=== PATIENT | male | born 1960 | race Caucasian/White ===

== ENCOUNTER 2018-07-06 01:33 | Observation (INO) ==
[2018-07-06] MEDS ORDERED: NITROGLYCERIN 0.4 MG SL TAB (BOTTLE OF 3) SL ONE ×2 (01:38→01:45)
[2018-07-06] MEDS ORDERED: MORPHINE SULFATE 4 MG/1 ML IVP ONE (01:45)
[2018-07-06] MEDS ORDERED: Sodium Chloride 0.9% 1,000 ML PRIMARY IV ONE (01:45)
[2018-07-06] MEDS ORDERED: ONDANSETRON 4 MG/2 ML VIAL IVP ONE (01:45)
--- NOTE | 2018-07-06 01:48 | EKG ---
[address] [place] [address] Measurements Intervals [place] Rate: 55 P: 59 MA: 170 QRS: -10 QRSD: 118 T: 121 QT: 432 QTc: 422 Interpretive Statements SINUS BRADYCARDIA MODERATE INTRAVENTRICULAR CONDUCTION DELAY ST DEVIATION AND MODERATE T-WAVE ABNORMALITY, CONSIDER ANTEROLATERAL ISCHEMIA Compared to ECG 06/26/2018 08:42:44 No significant changes Electronically Signed On 07-06-18 18:05:25 MDT by Piotr Boucher [id number]
--- NOTE | 2018-07-06 01:49 | PDOC ---
Chest Pain HPI - General Chief Complaint: Chest Pain Stated Complaint: CHEST PAIN Date Seen by Provider: 07/06/18 Time Seen by Provider: 01:30 Source: Patient, Spouse Exam Limitations: POSITIVE: No limitations Treatment Prior to Arrival: REPORTS: Aspirin Nurse's Notes Reviewed & Considered: Yes - History of Present Illness Initial Comments: This is a well-developed, well-nourished, very pleasant, 58-year-old male, complaining of chest pain. Patient had chest pain that began approximately an hour ago that he describes as pressure that is nonradiating. He has associated shortness of breath. By the time he arrived in the emergency room his pain had improved. He's been having multiple episodes of chest pressure and shortness of breath that can occur at random times with and without activity. He states that the chest pressure and tightness that he gets in his chest with attempting to walk up with your to swim is significantly worse. He denies any headache, no sore throat, no nausea vomiting or diarrhea, no fever chills or sweats. Body Location Affected: REPORTS: Chest Timing: REPORTS: Abrupt Duration: 1 hour Severity: Moderate Context: REPORTS: Rest Quality: REPORTS: Pressure Radiation: REPORTS: None Associated Symptoms: REPORTS: Shortness of Breath Modifying Factors: improves with: None Reported Similar Symptoms Previously: Yes Recently seen/treated/hospitalized: Yes Any Prior Injuries Related to Current Complaint?: No - Patient Home Medications Home Medications: Home Medications Lysine 500 mg PO QD 06/21/11 Multivitamin [Vitamin A Day] 1 tab ORAL QD tab 06/21/11 Aspirin [Aspir 81] 81 mg ORAL QD #90 tab 06/18/14 tamsulosin 0.4 mg capsule 0.4 mg ORAL QD #90 cap 04/04/18 colchicine 0.6 mg tablet 1.2 mg PO DAILY tab 05/07/18 fenofibrate 54 mg tablet 54 mg PO QDAY #90 tab 05/07/18 ezetimibe 10 mg-simvastatin 40 mg tablet 1 tab PO QDAY #90 tab 05/12/18 allopurinol 300 mg tablet 150 mg PO QD #30 tab 06/03/18 lisinopril 10 mg tablet 10 mg PO QDAY 06/17/18 - Patient Allergies Allergies/Adverse Reactions: Allergies 3 Allergy/AdvReac Type Severity Reaction Status Date / Time No Known Drug Allergies Allergy NOT Verified 07/06/18 01:41 APPLICABLE Past Medical History - heen HEENT History: Denies History Cardiovascular History: Hypertension Genitourinary History: Other (please comment) Additional Genitourinary History: prostate CA Endocrine History: Denies History Musculoskeletal History: Denies History Neurological History: Denies History Blood Disorders: Denies History History of Sexually Transmitted Diseases: Yes (clamidia) Cancer History: Other (please comment) History of MDRO: No In the Past 12 Months, Have Used or Abuse Any Substance: None Significant Family History: No pertinent family hx ROS - Limitations ROS Limitations: No Limitations Constitution: REPORTS: Denies Symptoms Cardiovascular: REPORTS: Chest Pain Respiratory: REPORTS: Hurts To Breathe, Shortness Of Breath Neurological: REPORTS: Denies Neuro Symptoms Gastrointestinal: REPORTS: Denies GI Symptoms Endocrine: REPORTS: Denies Symptoms Musculoskeletal: REPORTS: Denies MS Symptoms Genitourinary: REPORTS: Hematuria Eyes: REPORTS: Denies Symptoms ENT: REPORTS: Denies Symptoms Skin: REPORTS: Denies Skin Symptoms Lympathic: REPORTS: Denies Lympathic Symptoms Immunologic: POSITIVE: Denies Symptoms Psychiatric: POSITIVE: Denies Psych Symptoms Chest Pain PE - General Appearance General Appearance: REPORTS: Alert, Cooperative, No Acute Distress, No Evidence of Trauma - HEENT HEENT: POSITIVE: Head Inspection Nml, Eyes Inspection Nml, Ears Inspection Nml, Nose Inspection Nml, Oral/Dental Inspect. Nml, Pharynx Inspect. Nml, PERRL, EOMI - Neck Neck: REPORTS: Normal Inspection - Respiratory Respiratory: REPORTS: No Respiratory Distress, Breath Sounds Normal, Chest Non- Tender - Cardiovascular Cardiovascular: REPORTS: Regular Rate and Rhythm, Heart Sounds Normal, Strong Pulses, No Murmur, No Gallop, No Friction Rub, No JVD Peripheral Pulses: Radial (R): 4+ - Abdomen Abdomen: Soft: (All Quadrants), Normal Bowel Sounds: (All Quadrants), Denies Tenderness: (All Quadrants), No Splenomegaly: (All Quadrants), No Hepatomegaly: (All Quadrants), No Guarding: (All Quadrants), No Rebound: (All Quadrants), No Palpable Pulse: (All Quadrants), No Palpabale Mass: (All Quadrants), No Distention: (All Quadrants), No Rigidity: (All Quadrants) - Skin Skin: REPORTS: Intact, Normal For Race, Warm, Dry, No Rash - Extremities Extremity: Non-Tender: (All Extremities), Normal ROM: (All Extremities), Normal Inspection: (All Extremities), Pelvis Stable: (All Extremities) - Neurological / Psychological Neurological: POSITIVE: Affect Apporpriate, Oriented X3, Motor Normal, Sensation Normal Chest Pain Progress - Results Reviewed by me Xrays/CTs/US Reviewed by me: Yes Discussed with Radiologist: Yes Lab Results Reviewed by Me: Yes CBC and BMP: 07/06/18 01:35 07/06/18 01:35 Lab Results:: Laboratory Results 3 07/06/18 07/06/18 07/06/18 01:35 01:35 01:35 WBC 4.55 L RBC 4.60 L Hgb 14.6 Hct 41.8 L MCV 90.9 H MCH 31.7 H MCHC 34.9 RDW Std Deviation 39.0 RDW Coeff of Daquan 12.1 Plt Count 189 MPV 10.6 Immature Gran % (Auto) 0.2 Neut % (Auto) 47.4 L Lymph % (Auto) 39.6 [place] % (Auto) 10.1 Eos % (Auto) 2.0 Baso % (Auto) 0.7 Immature Gran # (Auto) 0.01 Neut # (Auto) 2.16 Lymph # (Auto) 1.80 [place] # (Auto) 0.46 Eos # (Auto) 0.09 Baso # (Auto) 0.03 WBC Morphology Comment Normal morphology Plt Morphology Comment Normal morphology RBC Morph Comment Normal morphology PT 10.7 INR 1.04 D-Dimer 0.67 H Sodium 137 Potassium 4.4 Chloride 105 Carbon Dioxide 25 Anion Gap 7 BUN 19 Creatinine 1.5 Estimated GFR 48 BUN/Creatinine Ratio 12.66 Glucose 107 Calculated Osmolality 285.0 Calcium 9.6 Magnesium 1.9 Total Bilirubin 0.9 AST 45 ALT 38 Alkaline Phosphatase 54 CK-MB (CK-2) Troponin I C-Reactive Protein < 0.5 NT-Pro-B Natriuret Pep Total Protein 7.6 Albumin 4.5 Globulin 3.1 Albumin/Globulin Ratio 1.40 TSH Free T4 3 07/06/18 07/06/18 07/06/18 01:35 01:35 01:35 WBC RBC Hgb Hct MCV MCH MCHC RDW Std Deviation RDW Coeff of Daquan Plt Count MPV Immature Gran % (Auto) Neut % (Auto) Lymph % (Auto) [place] % (Auto) Eos % (Auto) Baso % (Auto) Immature Gran # (Auto) Neut # (Auto) Lymph # (Auto) [place] # (Auto) Eos # (Auto) Baso # (Auto) WBC Morphology Comment Plt Morphology Comment RBC Morph Comment PT INR D-Dimer Sodium Potassium Chloride Carbon Dioxide Anion Gap BUN Creatinine Estimated GFR BUN/Creatinine Ratio Glucose Calculated Osmolality Calcium Magnesium Total Bilirubin AST ALT Alkaline Phosphatase CK-MB (CK-2) 3.65 Troponin I 0.026 C-Reactive Protein NT-Pro-B Natriuret Pep 340 H Total Protein Albumin Globulin Albumin/Globulin Ratio TSH 7.30 H Free T4 1.02 EKG Interpreted/Reviewed By Me:: Yes (EKG shows sinus bradycardia with ST depressions in V3 through V6.) EKG Interpretation:: POSITIVE: Abnormal EKG - Patient's Progress Pain Medication Addressed: POSITIVE: Yes Re-Examine Time: 03:11 Status: POSITIVE: Improved MDM / ED Course: Patient was evaluated, an IV started, blood drawn and sent to the lab for studies, chest x-ray and EKG was obtained. Findings: CBC shows a white count of 4.55 hemoglobin 14.6, hematocrit 40 1., platelets 189. 47.4% neutrophils. PT and INR normal. D-dimer is elevated at 0.67. Troponin is 0.026, CK-MB is 3.65. CRP is less than 0.5, BNP is 340. TSH is elevated at 7.30, free T4 is 1.02. Comprehensive metabolic panel shows a creatinine of 1.5 which has increased from a 1.31 week ago. Chest x-rays are normal chest radiograph with no acute cardiopulmonary decompensation. EKG, per my interpretation, shows sinus bradycardia with rate of 55 beats a minute and ST changes in V3 through V6. Assessment: #1 chest pain with normal enzymes and equivocal EKG. #2 elevated d- dimer. #3 renal insufficiency. #4 prostate cancer. Plan: Admission, VQ scan in the morning, chest pain rule out workup. Normal saline at 125 mL per hour. Monitor urine output and creatinine. Quality Measure Initiative: CP/AMI: POSITIVE: EKG, ASA Quality Measure Initiative: CAP: POSITIVE: CXR or CT - Consult Consult (If Yes, Name of Consulting MD & Time Called): Yes (Dr. Simmons) Consulting MD will see pt:: POSITIVE: [facility] Admit Counseled: POSITIVE: Patient, Family, RE: Lab Results, RE: Radiology Results, RE : DX, RE: Need for F/U Patient Care Time - Estimated PCT Patient Care Time (In Minutes): 60 Vital Signs - Recent Vital Signs Vital Signs: Vital Signs (Last 8 hours) Temp Pulse Pulse Resp BP Pulse Ox 07/06/18 01:33 97.7 F 67 67 18 142/68 95 - VS Reviewed Vital Signs Reviewed: Yes Discharge Clinical Impression: Chest pain Discharge Disposition: Admit to Inpatient Condition: Stable Date Decision to Admit to Inpatient: 07/06/18 Time Decision to Admit to Inpatient: 02:35
[2018-07-06 01:50] LABS: BASOPHILS # (AUTO) 0.03 10*3/UL; BASOPHILS % (AUTO) 0.7 % (0-1); EOSINOPHILS # (AUTO) 0.09 10*3/UL; Hematocrit [HCT] 41.8 % (42.0-52.0); Hemoglobin [HGB] 14.6 g/dL (14.0-18.0); MEAN CORPUSCULAR HEMOGLOBIN 31.7 PG (27-31); MEAN CORPUSCULAR HGB CONC 34.9 g/dL (33-37); MEAN CORPUSCULAR VOLUME 90.9 FL (80-90); MEAN PLATELET VOLUME 10.6 FL (7.4-12.2); MONOCYTES # (AUTO) 0.46 10*3/UL (0.3-0.8); MONOCYTES % (AUTO) 10.1 % (5-15); NEUTROPHILS # (AUTO) 2.16 10*3/UL; NEUTROPHILS % (AUTO) 47.4 % (50-80); PLATELET MORPHOLOGY COMMENT NORMAL MORPHOLOGY (NORM); RBC MORPHOLOGY COMMENT NORMAL MORPHOLOGY (NORM); WBC MORPHOLOGY COMMENT NORMAL MORPHOLOGY (NORM)
[2018-07-06 01:57] LABS: BLOOD UREA NITROGEN 19 mg/dL (7-22); BUN/CREATININE RATIO 12.66 (6-20); SERUM ALBUMIN 4.5 g/dL (3.5-4.8)
--- NOTE | 2018-07-06 02:19 | DI ---
EXAM: XR Chest, 1 View CLINICAL HISTORY: ITS.REASON cp/sob Physician Notes: Tech Comments: TECHNIQUE: Frontal view of the chest. COMPARISON: No relevant prior studies available. FINDINGS: Lungs: Unremarkable. The lungs are clear. Pleural space: Unremarkable. No pneumothorax. Heart: Unremarkable. No cardiomegaly. Mediastinum: Unremarkable. Bones/joints: Unremarkable. IMPRESSION: Normal chest x-ray.
[2018-07-06] MEDS ORDERED: LIDOCAINE W/ SODIUM BICARB 0.5 ML SYR SUBD PRN (02:51)
[2018-07-06] MEDS: Sodium Chloride 0.9% 1,000 ML PRIMARY IV SCH ×2 (03:41→17:18)
[2018-07-06 08:31] LABS: BUN/CREATININE RATIO 13.07 (6-20); SERUM ALBUMIN 4.1 g/dL (3.5-4.8)
[2018-07-06] MEDS ORDERED: TAMSULOSIN 0.4 MG CAPSULE PO SCH (10:00)
[2018-07-06] MEDS: Phenazopyridine Tab 100 MG TAB PO SCH ×2 (10:39→13:41)
[2018-07-06] MEDS: SULFAMETHOXAZOLE/TRIMETHOPRIM 800/160 MG TABLET PO SCH ×2 (10:39→20:35)
--- NOTE | 2018-07-06 11:34 | DI ---
INDICATION: Shortness of breath TECHNIQUE: Multiple, contiguous 2.5 mm axial cuts of the chest are obtained following the administration of IV contrast. High resolution axial image as well as, sagittal and coronal reformatted images are available. COMPARISON: None FINDINGS: No pulmonary embolus is identified. The aorta is within normal limits, no aneurysm or dissection. The cardiomediastinal structures are normal. No adenopathy or effusions. The lungs are clear. The osseous structures are unremarkable. IMPRESSION: No evidence of pulmonary embolus.
--- NOTE | 2018-07-06 12:00 | PDOC ---
HPI - History of Present Illness Date of Service: 07/06/18 Time of Service: 11:55 Chief Complaint: Chest pain History of Present Illness: This is a very pleasant 58-year-old male recently diagnosed with prostate cancer and awaiting a radical prostatectomy with da Kang robot. The patient came in, accompanied by his with complaints of chest pain that happened through the evening. He states that his chest pain really started about 2-1/2 months ago and was associated with exertional chest pain. He noted that he has not been able to do his workouts such as swimming or walking 2 miles or running a mile a day without having chest pain and shortness breath at the end of the workouts. He states that as time has gone on, that the pain has been radiating down his left arm. He denies any heartburn symptoms although he does chew tobacco. He states that when he is doing normal activities or resting, the pain does not seem to be there although he has occasional "twinges" or a flutter -like sensation. He does have known hypercholesterolemia that's been difficult to treat with medications. He has a family history of heart disease in that his father had a heart attack at an early age. He does not have diabetes, does not smoke, and he has hypertension that intermittently has been treated. He had arrangements to see a transformer builder this week, but due to the continued persistence of chest pain and the cardiology office telling the patient that he should have his chest pain evaluated should he have any recurrence of it prior to his appointment, he came in for evaluation. I did have a CT scan of the chest done this morning with contrast to look for pulmonary emboli and it was negative. His d-dimer was elevated. There was some concern over his creatinine , but his creatinine improved with hydration and I think his GFR was underestimated. His enzymes initially are negative. His EKG showed some nonspecific ST changes in V4 through V6. Past Medical History Medical History: 1. Hypertension. 2. Prostate cancer, recently diagnosed. 3. Hypercholesterolemia. 4. Tobacco chewer Surgical History: 1. Ankle surgery. 2. Umbilical hernia at age 4. Pertinent Family History: Significant for coronary artery disease in his father. Past Social History: Does not smoke. Chews tobacco. for over 30 years. Has 2 healthy children. 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 Tobacco Use: Never Smoker Do you dip or chew tobacco: Yes In the Past 12 Months, Have Used or Abuse Any of the Following Substance: None Alcohol Use: None Medication / Allergies Home Medications: Home Medications 3 Medication Instructions Recorded Confirmed Type Lysine 500 mg PO QD 06/21/11 07/06/18 History Multivitamin [Vitamin A Day] 1 tab ORAL QD tab 06/21/11 07/06/18 History Aspirin [Aspir 81] 81 mg ORAL QD #90 tab 06/18/14 07/06/18 History tamsulosin 0.4 mg capsule 0.4 mg ORAL QD #90 cap 04/04/18 07/06/18 Rx colchicine 0.6 mg tablet 1.2 mg PO DAILY tab 05/07/18 07/06/18 History fenofibrate 54 mg tablet 54 mg PO QDAY #90 tab 05/07/18 07/06/18 Rx ezetimibe 10 mg-simvastatin 40 mg 1 tab PO QDAY #90 tab 05/12/18 07/06/18 Rx tablet allopurinol 300 mg tablet 150 mg PO QD #30 tab 06/03/18 07/06/18 Rx Allergies/Adverse Reactions: Allergies 3 Allergy/AdvReac Type Severity Reaction Status Date / Time No Known Drug Allergies Allergy NOT Verified 07/06/18 01:41 APPLICABLE Review of Systems - Review of Systems All Systems: Reviewed & No Additional Complaints Except as Stated (I did a 12 point review systems and it is negative other than that discussed in the history of present illness and then noted below.) - Respiratory Respiratory: REPORTS: Dyspnea with Exertion - Cardiovascular Cardiovascular: REPORTS: See HPI - Genitourinary Genitourinary: REPORTS: Burning (That persists despite being placed on Bactrim and Pyridium. He has been on those medications for about a week.), Hematuria ( That has resolved recently.) - Additonal Details Additional ROS Details: The patient has had an elevated TSH but has elected to not go on any thyroid replacement at this point. His T4 has been normal. Exam - Vitals Vital Signs: Vital Signs Temperature 97.6 F Temperature Source Temporal Artery Scan Pulse Rate [Pulse Oximeter] 62 Pulse Rate 67 Respiratory Rate 18 Blood Pressure [Right Arm] 140/92 Blood Pressure 112/84 Pulse Ox 93 Oxygen Delivery Method Room Air Height 5 ft 10 in Weight 206 lb 11.2 oz - General General Appearance: No Acute Distress, Cooperative - Head Head Exam: Normal Inspection, Normocephalic, Atraumatic - Eye Eye Exam: POSITIVE: No Scleral Icterus - ENT ENT Exam: POSITIVE: Mucous Membranes Moist - Neck Neck Exam: Normal Inspection, No Tenderness, No Lymphadenopathy, No Thyromegaly , JVP is not Raised - Respiratory Respiratory Exam: POSITIVE: Clear to Auscultation - Bilaterally, Breathing Non Labored, Normal to Percussion and Palpation - Cardiovascular Cardiovascular Exam: POSITIVE: RRR, No Murmur, No Clicks, No Gallops, No Rubs, No JVD - GI/Abdominal GI/Abdominal Exam: POSITIVE: Normal Bowel Sounds, Non Tender, Non Distended, Soft - Rectal Rectal Exam: POSITIVE: Deferred - External Exam: POSITIVE: Deferred Exam: POSITIVE: Deferred - Extremities Extremities Exam: POSITIVE: No Clubbing Present, No Edema Present, No Cyanosis Present - Back Back Exam: POSITIVE: Normal Inspection, No CVA Tenderness - Neurological Neurological Exam: POSITIVE: Alert, Oriented x 3, No Facial Droop, Speech Intact / Clear, Moves All Extremities Equally - Psychiatric Psychiatric Exam: POSITIVE: Normal Affect, Normal Mood - Integumentary Integumentary Exam: POSITIVE: Normal Color, Warm, Dry, Intact Results - Labs CBC and BMP: 07/06/18 01:35 07/06/18 07:35 Additional Lab Results: Laboratory Results 07/06/18 07/06/18 07/06/18 Range/Units 01:35 01:35 01:35 WBC 4.55 L (4.8-10.8) 10^3/uL RBC 4.60 L (4.70-6.10) 10^6/uL Hgb 14.6 (14.0-18.0) g/dL Hct 41.8 L (42.0-52.0) % MCV 90.9 H (80-90) FL MCH 31.7 H (27-31) PG MCHC 34.9 (33-37) g/dL RDW Std Deviation 39.0 (39-50) fL RDW Coeff of Daquan 12.1 (11.5-14.5) % Plt Count 189 (140-350) 10*3/uL MPV 10.6 (7.4-12.2) FL Immature Gran % (Auto) 0.2 (0-5) % Neut % (Auto) 47.4 L (50-80) % Lymph % (Auto) 39.6 (10-50) % [place] % (Auto) 10.1 (5-15) % Eos % (Auto) 2.0 (0-8) % Baso % (Auto) 0.7 (0-1) % Immature Gran # (Auto) 0.01 10*3/UL Neut # (Auto) 2.16 10*3/UL Lymph # (Auto) 1.80 10*3/uL [place] # (Auto) 0.46 (0.3-0.8) 10*3/UL Eos # (Auto) 0.09 10*3/UL Baso # (Auto) 0.03 10*3/UL WBC Morphology Comment Normal morphology (NORM) Plt Morphology Comment Normal morphology (NORM) RBC Morph Comment Normal morphology (NORM) PT 10.7 (9.7-11.4) secs INR 1.04 (0.00-5.90) N/A D-Dimer 0.67 H (0.00-0.59) mg/L Sodium 137 (135-145) meq/L Potassium 4.4 (3.8-5.2) meq/L Chloride 105 (98-112) meq/L Carbon Dioxide 25 (23-33) meq/L Anion Gap 7 (5-20) BUN 19 (7-22) mg/dL Creatinine 1.5 (0.70-1.50) mg/dL Estimated GFR 48 (>60 ml/min/1.73m(2)) BUN/Creatinine Ratio 12.66 (6-20) Glucose 107 (78-110) mg/dL Calculated Osmolality 285.0 (267-292) mOsm/kg Calcium 9.6 (8.7-10.7) mg/dL Magnesium 1.9 (1.6-2.4) mg/dL Total Bilirubin 0.9 (0.3-1.2) mg/dL AST 45 (21-57) IU/L ALT 38 (21-72) IU/L Alkaline Phosphatase 54 (38-126) IU/L CK-MB (CK-2) (0.00-5.00) NG/ML Troponin I (< 0.040) ng/mL C-Reactive Protein < 0.5 (0.0-0.9) mg/dL NT-Pro-B Natriuret Pep (0-125) PG/ML Total Protein 7.6 (6.1-8.0) g/dL Albumin 4.5 (3.5-4.8) g/dL Globulin 3.1 (2.50-4.10) g/dL Albumin/Globulin Ratio 1.40 (1.3-2.0) mg/g TSH (0.2700-4.2000) uIU/mL Free T4 (0.93-1.71) ng/dL 07/06/18 07/06/18 07/06/18 Range/Units 01:35 01:35 01:35 WBC (4.8-10.8) 10^3/uL RBC (4.70-6.10) 10^6/uL Hgb (14.0-18.0) g/dL Hct (42.0-52.0) % MCV (80-90) FL MCH (27-31) PG MCHC (33-37) g/dL RDW Std Deviation (39-50) fL RDW Coeff of Daquan (11.5-14.5) % Plt Count (140-350) 10*3/uL MPV (7.4-12.2) FL Immature Gran % (Auto) (0-5) % Neut % (Auto) (50-80) % Lymph % (Auto) (10-50) % [place] % (Auto) (5-15) % Eos % (Auto) (0-8) % Baso % (Auto) (0-1) % Immature Gran # (Auto) 10*3/UL Neut # (Auto) 10*3/UL Lymph # (Auto) 10*3/uL [place] # (Auto) (0.3-0.8) 10*3/UL Eos # (Auto) 10*3/UL Baso # (Auto) 10*3/UL WBC Morphology Comment (NORM) Plt Morphology Comment (NORM) RBC Morph Comment (NORM) PT (9.7-11.4) secs INR (0.00-5.90) N/A D-Dimer (0.00-0.59) mg/L Sodium (135-145) meq/L Potassium (3.8-5.2) meq/L Chloride (98-112) meq/L Carbon Dioxide (23-33) meq/L Anion Gap (5-20) BUN (7-22) mg/dL Creatinine (0.70-1.50) mg/dL Estimated GFR (>60 ml/min/1.73m(2)) BUN/Creatinine Ratio (6-20) Glucose (78-110) mg/dL Calculated Osmolality (267-292) mOsm/kg Calcium (8.7-10.7) mg/dL Magnesium (1.6-2.4) mg/dL Total Bilirubin (0.3-1.2) mg/dL AST (21-57) IU/L ALT (21-72) IU/L Alkaline Phosphatase (38-126) IU/L CK-MB (CK-2) 3.65 (0.00-5.00) NG/ML Troponin I 0.026 (< 0.040) ng/mL C-Reactive Protein (0.0-0.9) mg/dL NT-Pro-B Natriuret Pep 340 H (0-125) PG/ML Total Protein (6.1-8.0) g/dL Albumin (3.5-4.8) g/dL Globulin (2.50-4.10) g/dL Albumin/Globulin Ratio (1.3-2.0) mg/g TSH 7.30 H (0.2700-4.2000) uIU/mL Free T4 1.02 (0.93-1.71) ng/dL 07/06/18 07/06/18 Range/Units 07:35 07:35 WBC (4.8-10.8) 10^3/uL RBC (4.70-6.10) 10^6/uL Hgb (14.0-18.0) g/dL Hct (42.0-52.0) % MCV (80-90) FL MCH (27-31) PG MCHC (33-37) g/dL RDW Std Deviation (39-50) fL RDW Coeff of Daquan (11.5-14.5) % Plt Count (140-350) 10*3/uL MPV (7.4-12.2) FL Immature Gran % (Auto) (0-5) % Neut % (Auto) (50-80) % Lymph % (Auto) (10-50) % [place] % (Auto) (5-15) % Eos % (Auto) (0-8) % Baso % (Auto) (0-1) % Immature Gran # (Auto) 10*3/UL Neut # (Auto) 10*3/UL Lymph # (Auto) 10*3/uL [place] # (Auto) (0.3-0.8) 10*3/UL Eos # (Auto) 10*3/UL Baso # (Auto) 10*3/UL WBC Morphology Comment (NORM) Plt Morphology Comment (NORM) RBC Morph Comment (NORM) PT (9.7-11.4) secs INR (0.00-5.90) N/A D-Dimer (0.00-0.59) mg/L Sodium 139 (135-145) meq/L Potassium 4.3 (3.8-5.2) meq/L Chloride 107 (98-112) meq/L Carbon Dioxide 26 (23-33) meq/L Anion Gap 6 (5-20) BUN 17 (7-22) mg/dL Creatinine 1.3 (0.70-1.50) mg/dL Estimated GFR 57 (>60 ml/min/1.73m(2)) BUN/Creatinine Ratio 13.07 (6-20) Glucose 104 (78-110) mg/dL Calculated Osmolality 289.0 (267-292) mOsm/kg Calcium 9.2 (8.7-10.7) mg/dL Magnesium (1.6-2.4) mg/dL Total Bilirubin 1.1 (0.3-1.2) mg/dL AST 42 (21-57) IU/L ALT 37 (21-72) IU/L Alkaline Phosphatase 47 (38-126) IU/L CK-MB (CK-2) (0.00-5.00) NG/ML Troponin I 0.022 (< 0.040) ng/mL C-Reactive Protein (0.0-0.9) mg/dL NT-Pro-B Natriuret Pep (0-125) PG/ML Total Protein 7.2 (6.1-8.0) g/dL Albumin 4.1 (3.5-4.8) g/dL Globulin 3.0 (2.50-4.10) g/dL Albumin/Globulin Ratio 1.30 (1.3-2.0) mg/g TSH (0.2700-4.2000) uIU/mL Free T4 (0.93-1.71) ng/dL - EKG Data -: EKG Interpreted by Me Rate: Normal EKG Shows Normal: Sinus Rhythm - EKG Data When Compared to Previous EKG(s) There Are: Previous EKG Unavailable EKG Interpretation: Nonspecific ST-T Wave Changes (In V4 through V6) - Imaging Status: Image Reviewed by Me (Chest x-ray, on my view is negative for any pneumonia or other issues. CT scan of the chest was read as negative for pulmonary embolus him.) Assessment and Plan - Patient Problems (1) Chest pain Current Visit: Yes Status: Acute Code(s): R07.9 - Chest pain, unspecified (2) Prostate cancer Current Visit: Yes Status: Acute Code(s): C61 - Malignant neoplasm of prostate (3) Subclinical hypothyroidism Current Visit: Yes Status: Acute Code(s): E03.9 - Hypothyroidism, unspecified (4) Hypertension Current Visit: Yes Status: Acute Code(s): I10 - Essential (primary) hypertension Qualifiers: Hypertension type: essential hypertension Qualified Code(s): I10 - Essential (primary) hypertension (5) Hypercholesterolemia Current Visit: Yes Status: Acute Code(s): E78.00 - Pure hypercholesterolemia , unspecified - Assessment / Plan Additional Assessment/Plan Details: Plan: 1. Enzymes do not reveal myocardial infarction and EKG will be done if patient develops pain. 2. Aspirin, and if positive, I think a beta oxana may make some sense. 3. We'll have the patient do a stress test [nuclear medicine treadmill stress test] 4. Given the issues with subclinical hypothyroidism, we discussed risks and benefits of potential thyroid replacement. I think at this point we'll do thyroid antibody studies which may indicate that the gland could feel in the future. 5. Nitroglycerin when necessary for chest pain 6. Morphine if necessary via IV 7. Oxygen if necessary 8. If testing indicates further need for evaluation, discussion with cardiology. In this situation, we have to be careful about how we treat any coronary artery disease is found as the patient is awaiting a da Kang prostatectomy with his urologist. This may mean either consideration for medical management through surgery, optimization with cardiology, potential bare -metal stent, or other based on situation, but it would be best to not delay the prostatectomy for an extended period of time. 9. Very pleased to see CT scan negative for pulmonary emboli. I'll continue some IV fluids through the day and checked BMP in a.m. Creatinine improved with hydration, and I suspect that it somewhat elevated due to increased muscle mass.
[2018-07-06] MEDS: FENOFIBRATE 54 MG PO SCH (13:00)
[2018-07-06] MEDS: ALLOPURINOL 300 MG TABLET PO SCH (13:23)
[2018-07-06] MEDS: Phenazopyridine Tab 200 MG TAB PO SCH ×2 (13:24→20:35)
[2018-07-06] MEDS: POLYETHYLENE GLYCOL 3350 17 GM POWDER PO SCH (13:24)
[2018-07-06] MEDS: ASPIRIN EC 81 MG TABLET PO SCH (13:24)
[2018-07-06] MEDS: Multivitamin Tab 1 TAB PO SCH (13:24)
[2018-07-06] MEDS: VYTORIN PO SCH (15:01)
[2018-07-06] MEDS: TAMSULOSIN 0.4 MG CAPSULE PO SCH (20:35)
[2018-07-07 05:11] LABS: BUN/CREATININE RATIO 10.76 (6-20)
[2018-07-07] MEDS: Sodium Chloride 0.9% 1,000 ML PRIMARY IV SCH ×2 (06:01→15:08)
[2018-07-07 06:34] VITALS: RESP 18; O2SAT 93
--- NOTE | 2018-07-07 10:48 | STRESSTEST ---
[facility] Interpretive Statements This is a 58 YO male with HTN, high cholesterol, exertional chest pain, no DM, + family history, who has an abnormal resting EKG with T-wave inversions in V4-V6 and in I and aVL. ruled out for RI. exercised in Jairon protocol (cardiolyte stress test) and reached maximum HR. ST segment depressions in I and aVL and V5 noted. greater than 1 mm and somewhat flat in inferior leads. no reproduced chest pain. frequent PVCs noted in rest phase. Hypertensive response to exercise. double product 33,108. HR slower to recover to baseline of 60-70 range. only recovered to about 100''s after 6 min rest. Impression: positive maximal stress test with hypertensive response to exercise. Plan: images today for cardiolyte portion, radiology to read. discuss with cardiology. refer to cardiology. [id number]
[2018-07-07] MEDS: POLYETHYLENE GLYCOL 3350 17 GM POWDER PO SCH (10:53)
[2018-07-07] MEDS: SULFAMETHOXAZOLE/TRIMETHOPRIM 800/160 MG TABLET PO SCH (10:54)
[2018-07-07] MEDS: TAMSULOSIN 0.4 MG CAPSULE PO SCH (10:54)
[2018-07-07] MEDS: VYTORIN PO SCH (10:54)
[2018-07-07] MEDS: ALLOPURINOL 300 MG TABLET PO SCH (10:54)
[2018-07-07] MEDS: Multivitamin Tab 1 TAB PO SCH (10:54)
[2018-07-07] MEDS: Phenazopyridine Tab 200 MG TAB PO SCH ×2 (10:54→13:25)
[2018-07-07] MEDS: ASPIRIN EC 81 MG TABLET PO SCH (10:54)
[2018-07-07] MEDS: FENOFIBRATE 54 MG PO SCH (10:55)
[2018-07-07 11:20] VITALS: BP 135/85; TEMP 97.5
--- NOTE | 2018-07-07 14:18 | DI ---
2 DAY LANCE STRESS & REST MYOCARDIAL PERFUSION SCANS, 07/06/2018-07/07/2018: Clinical History: Chest pain. Abnormal resting EKG. Previous Exam: None at this facility. Monitoring Physician: Dr. Michael Hdz. Dose: Stress dose: 39 mCi on 07/06/2018. Rest dose: 33 mCi on 07/07/2018. Quantitative Analysis: Scaleogy program with low dose limited CT chest scan attenuation correctio n. Exam Quality: Excellent. Rejected Beats: Stress = 4%; Rest = 1%. HR: Stress = 59-72 b/m; Rest = 58-6 6 b/m. Left ventricular chamber sizes are normal at stress and rest. Transient ischemic dilatation ratio is 1.03 (normal Lance TID <= 1.22; normal Lexiscan TID <= 1.33). Stress LVEF: 70%; rest LVEF: 70%. The n on-attenuated corrected scans show a reversible defect in the apex that is not rated as statistically significant, but the attenuated corrected scans show a statistically significant reversible defect i n the anteroapical segment indicating ischemia corresponding to the vascular territory of the distal half or distal third of the LAD. All other mcghee show normal perfusion at stress and rest. There is m arked hypokinesis of the anteroapical segment at stress and this almost returns to normal at rest. Al l other mcghee contract vigorously. There is normal myocardial thickening at stress and rest. Limited CT scans of the heart show faint calcifications throughout the LAD and in the midportion of the left circumflex artery. There are no lung nodules or enlarged nodes. Readin. Normal stress and rest left ventricular chamber size. Transient ischemic dilatation ratio is norm al at 1.03. 2. Normal stress and rest LVEF values of 70%. 3. There is a reversible defect in the anteroapical segment indicating ischemia corresponding to the vascular territory of the distal half or distal third of the LAD. There is also marked hypokinesis i n the same region at stress and this improves almost to a normal wall motion at rest. All other mcghee show normal perfusion and contract normally at stress and rest. There is normal myocardial thickenin g at stress and rest. 4. Faint calcifications are present in the LAD and in the left circumflex artery. There are no pulmo nary nodules or enlarged lymph nodes.
[2018-07-07] MEDS ORDERED: HEPARIN 5000 UNIT/1 ML IV ONE (14:43)
[2018-07-07] MEDS ORDERED: Heparin Drip 25,000 UNIT/500 ML BAG IV SCH (14:45)
[2018-07-07] MEDS ORDERED: HEPARIN 5000 UNIT/1 ML ONE (14:47)
[2018-07-07] MEDS ORDERED: Heparin Drip 25,000 UNIT/500 ML BAG IV ONE (14:47)
--- NOTE | 2018-07-07 15:45 | DCSUMMARY ---
Hospitalization Summary Admit Date: 07/06/2018 Discharge Date: 07/07/18 Primary Diagnosis:: unstable angina, coronary artery disease, positive stres Hospital Course: This very pleasant 58-year-old male with underlying history of hypercholesterolemia, recently diagnosed prostate cancer waiting da Kang surgery for prostatectomy, hypertension, who has had increasing heart pain and shortness of breath with exertional activities such as running and swimming. The patient states that he was slated to see a marble and granite polisher regarding the symptoms and he was told that if he developed any chest pain in the interim, that he should present to the emergency room. He woke up at around midnight with twinges in his chest, substernal, and he came into the emergency room for evaluation. He was admitted, ruled out for cardiac myocardial infarction, but continues to have some intermittent rest chest pain. His Jairon protocol myocardial perfusion study was positive for coronary artery disease in the anteroapical region. The treadmill portion of that was positive for ST segment depressions in 1 and aVL and V5 and V6. The patient states that when his chest pain started at midnight, he went out to change the oil in his boat, and he was quite concerned about his symptoms persisting, so he came in for evaluation then. The patient is quite concerned about his coronary artery disease situation and where it might leave him in terms of timing for his prostate cancer surgery. I spoke with cardiology in [place], [place], and they agreed to accept the patient for continued workup and probable heart catheterization, and they are aware that the patient is awaiting da Kang surgery for prostatectomy as well. I will notify the patient's urologist as well via telephone. I was able to speak with Dr. Corbin so he is aware of the situation. Please note that the patient denies any bone pain at this time. The patient does have subclinical hypothyroidism. It somewhat controversial as to treat with a TSH in the sevens range. I did discuss this with the patient and his . I have ordered thyroid antibodies and if they are positive, that may be more of an argument to consider treatment prior to TSH going into the tens and/or free T4 decreasing. Patient's hypertension was well controlled. The patient is on a couple of cholesterol medications, but hypercholesterolemia and hypertriglyceridemia seems to persist. Could be familial. Given the chest pain and shortness breath components to his history, and known prostate cancer, I did do a CT, PE protocol, and it was negative for pulmonary embolism. The patient did not develop any evidence for contrast-induced nephropathy. I think his creatinine is elevated in the setting of someone who is more fit and has increased muscle mass with exercise. I did discuss with cardiology whether to place the patient on a beta oxana, and it was recommended to just hold off on that for now. We had the patient on an aspirin daily here. I did discuss risk-benefit ratio of beta blockers with the patient. If he goes on to it, and recommend being on it at least 30 days prior to any surgeries. Currently, the patient does not have chest pain, shortness breath, nausea or vomiting. Assessment and Plan: 1. As per discharge assessments noted 2. Disposition: Discharged to [facility] 3. Condition on discharge, stable and improved. But with unstable angina, chest pain, and coronary artery disease, certainly condition could deteriorate. We sent him on a heparin drip. 4. Diet: regular diet 5. Activities: As per [facility], and Dr. Stanton 6. Follow-Up: 1. Dr. Rand [address] [facility] 2. I spoke with Dr. Corbin regarding the patient's situation and he is aware and will move his surgery date back. 7. Medications at the Time of Discharge: Active Medications Generic Name Dose Route Start Last Admin Trade Name Freq PRN Reason Stop Dose Admin Allopurinol 150 mg 07/06/18 12:15 07/07/18 10:54 Zyloprim PO 150 mg DAILY DAVIDE Administration Aspirin 81 mg 07/06/18 12:15 07/07/18 10:54 Aspirin Ec PO 81 mg DAILY DAVIDE Administration Heparin Sodium/Dextrose 25,000 unit in 500 mls @ 22.077 mls/hr 07/07/18 14:45 07/07/18 14:52 Heparin (Premix) IV 12 unit/kg/hr .Per Protocol DAVIDE 22.077 mls/hr Administration Protocol 12 UNIT/KG/HR Lidocaine HCl 0.5 ml 07/06/18 02:51 Lidocaine Buffered Inj SUBD ONCE PRN IV Starts Multivitamins Therapeutic 1 tab 07/06/18 12:30 07/07/18 10:54 Thera Tab PO 1 tab DAILY DAVIDE Administration Own Med : 1 07/06/18 13:00 07/07/18 10:55 Fenofibrate 54 Mg ( PO 1 Tricor) DAILY DAVIDE Administration Own Med : Vytorin 10 1 07/06/18 13:00 07/07/18 10:54 -40 Mg PO 1 DAILY DAVIDE Administration Phenazopyridine HCl 200 mg 07/06/18 13:15 07/07/18 13:25 Pyridium PO 200 mg TID PC DAVIDE Administration Polyethylene Glycol 17 gm 07/06/18 13:15 07/07/18 10:53 Miralax Packet PO 17 gm DAILY DAVIDE Administration Tamsulosin HCl 0.4 mg 07/06/18 21:00 07/07/18 10:54 Flomax PO 0.4 mg BID DAVIDE Administration Trimethoprim/Sulfamethoxazole 1 tab 07/06/18 10:00 07/07/18 10:54 Bactrim Ds 800/160 Tab PO 1 tab BID DAVIDE Administration 8. Time, care, counseling and coordination of care for this discharge is greater than 30 minutes. Exam - Vitals Vital Signs: Vital Signs Temperature 97.5 F Temperature Source Temporal Artery Scan Pulse Rate [Pulse Oximeter] 92 Pulse Rate 70 Respiratory Rate 18 Blood Pressure [Right Arm] 135/85 Blood Pressure 112/84 Pulse Ox 93 Oxygen Delivery Method Room Air Height 5 ft 10 in Weight 202 lb 12.8 oz - General General Appearance: No Acute Distress, Cooperative - Head Head Exam: Normal Inspection, Normocephalic, Atraumatic - Eye Eye Exam: POSITIVE: No Scleral Icterus - ENT ENT Exam: POSITIVE: Mucous Membranes Moist - Respiratory Respiratory Exam: POSITIVE: Clear to Auscultation - Bilaterally, Breathing Non Labored - Cardiovascular Cardiovascular Exam: POSITIVE: RRR, No Murmur, No Clicks, No Gallops, No Rubs, No JVD - GI/Abdominal GI/Abdominal Exam: POSITIVE: Normal Bowel Sounds, Non Tender, Non Distended, Soft - Extremities Extremities Exam: POSITIVE: No Clubbing Present, No Edema Present, No Cyanosis Present - Neurological Neurological Exam: POSITIVE: Alert, Oriented x 3, No Facial Droop, Speech Intact / Clear, Moves All Extremities Equally - Psychiatric Psychiatric Exam: POSITIVE: Normal Affect, Normal Mood, Anxious (Mostly about diagnosis.) Data Peritnent Studies: Laboratory Results 07/06/18 07/07/18 07/07/18 Range/Units 19:40 04:19 04:19 Sodium 138 (135-145) meq/L Potassium 4.4 (3.8-5.2) meq/L Chloride 109 (98-112) meq/L Carbon Dioxide 23 (23-33) meq/L Anion Gap 6 (5-20) BUN 14 (7-22) mg/dL Creatinine 1.3 (0.70-1.50) mg/dL Estimated GFR 57 (>60 ml/min/1.73m(2)) BUN/Creatinine Ratio 10.76 (6-20) Glucose 98 (78-110) mg/dL Calculated Osmolality 286.0 (267-292) mOsm/kg Calcium 9.1 (8.7-10.7) mg/dL Troponin I < 0.012 (< 0.040) ng/mL Thyroid Stim Immunoglob Pending Thyroperoxidase Ab Pending Thyroglobulin Antibody Pending Thyroid Peroxidase Ab TNP 06/26/18 06/26/18 06/26/18 08:23 08:23 08:23 Sodium Potassium Chloride Carbon Dioxide Anion Gap BUN Creatinine Estimated GFR BUN/Creatinine Ratio Glucose Mean Blood Glucose 79.168 Hemoglobin A1c 4.96 Calculated Osmolality Uric Acid 5.4 Calcium Magnesium Total Bilirubin AST ALT Alkaline Phosphatase Lactate Dehydrogenase 395 CK-MB (CK-2) Troponin I C-Reactive Protein NT-Pro-B Natriuret Pep Total Protein Albumin Globulin Albumin/Globulin Ratio Triglycerides 289 H Cholesterol 166 LDL Cholesterol, Calc 77.200 VLDL Cholesterol 57 H HDL Cholesterol 31 L Cholesterol/HDL Ratio 5.35 H Prostate Specific Ag 15.3 H TSH Free T4 07/06/18 07/06/18 07/06/18 01:35 01:35 01:35 Sodium Potassium Chloride Carbon Dioxide Anion Gap BUN Creatinine Estimated GFR BUN/Creatinine Ratio Glucose Mean Blood Glucose Hemoglobin A1c Calculated Osmolality Uric Acid Calcium Magnesium 1.9 Total Bilirubin AST ALT Alkaline Phosphatase Lactate Dehydrogenase CK-MB (CK-2) 3.65 Troponin I C-Reactive Protein < 0.5 NT-Pro-B Natriuret Pep Total Protein Albumin Globulin Albumin/Globulin Ratio Triglycerides Cholesterol LDL Cholesterol, Calc VLDL Cholesterol HDL Cholesterol Cholesterol/HDL Ratio Prostate Specific Ag TSH 7.30 H Free T4 1.02 07/06/18 07/06/18 07/06/18 01:35 07:35 19:40 Sodium Potassium Chloride Carbon Dioxide Anion Gap BUN Creatinine Estimated GFR BUN/Creatinine Ratio Glucose Mean Blood Glucose Hemoglobin A1c Calculated Osmolality Uric Acid Calcium Magnesium Total Bilirubin 1.1 AST 42 ALT 37 Alkaline Phosphatase 47 Lactate Dehydrogenase CK-MB (CK-2) Troponin I < 0.012 C-Reactive Protein NT-Pro-B Natriuret Pep 340 H Total Protein 7.2 Albumin 4.1 Globulin 3.0 Albumin/Globulin Ratio 1.30 Triglycerides Cholesterol LDL Cholesterol, Calc VLDL Cholesterol HDL Cholesterol Cholesterol/HDL Ratio Prostate Specific Ag TSH Free T4 07/07/18 04:19 Sodium 138 Potassium 4.4 Chloride 109 Carbon Dioxide 23 Anion Gap 6 BUN 14 Creatinine 1.3 Estimated GFR 57 BUN/Creatinine Ratio 10.76 Glucose 98 Mean Blood Glucose Hemoglobin A1c Calculated Osmolality 286.0 Uric Acid Calcium 9.1 Magnesium Total Bilirubin AST ALT Alkaline Phosphatase Lactate Dehydrogenase CK-MB (CK-2) Troponin I C-Reactive Protein NT-Pro-B Natriuret Pep Total Protein Albumin Globulin Albumin/Globulin Ratio Triglycerides Cholesterol LDL Cholesterol, Calc VLDL Cholesterol HDL Cholesterol Cholesterol/HDL Ratio Prostate Specific Ag TSH Free T4 Procedures: [address] [facility]. [facility] [place] [address] PH: DD: [phone] FAX: [phone] ~DIAGNOSTIC IMAGING REPORT~ Patient: ARABELLA BAKER : 1960 Sex: M Age: 58 Exam Name: NM Myocardial Multi-Spect Exam Date: 07/06/18 Report # : [id number] CPT Code: 00904 EMR/MR #: [id number] Ordering: ANKIT FERNANDES Admiting: ALEX PATINO MD. Primary: Cristian Rand MD Attending: ALEX PATINO MD. Signed 2 DAY JAIRON STRESS & REST MYOCARDIAL PERFUSION SCANS, 07/06/2018-07/07/2018: Clinical History: Chest pain. Abnormal resting EKG. Previous Exam: None at this facility. Monitoring Physician: Dr. Ankit Fernandes. Dose: Stress dose: 39 mCi on 07/06/2018. Rest dose: 33 mCi on 07/07/2018. Quantitative Analysis: Doculogy program with low dose limited CT chest scan attenuation correction. Exam Quality: Excellent. Rejected Beats: Stress = 4%; Rest = 1%. HR: Stress = 59-72 b/m; Rest = 58-66 b/m. Left ventricular chamber sizes are normal at stress and rest. Transient ischemic dilatation ratio is 1.03 (normal Jairon TID <= 1.22; normal Lexiscan TID <= 1.33). Stress LVEF: 70%; rest LVEF: 70%. The non-attenuated corrected scans show a reversible defect in the apex that is not rated as statistically significant, but the attenuated corrected scans show a statistically significant reversible defect in the anteroapical segment indicating ischemia corresponding to the vascular territory of the distal half or distal third of the LAD. All other mcghee show normal perfusion at stress and rest. There is marked hypokinesis of the anteroapical segment at stress and this almost returns to normal at rest. All other mcghee contract vigorously. There is normal myocardial thickening at stress and rest. Limited CT scans of the heart show faint calcifications throughout the LAD and in the midportion of the left circumflex artery. There are no lung nodules or enlarged nodes. Readin. Normal stress and rest left ventricular chamber size. Transient ischemic dilatation ratio is normal at 1.03. 2. Normal stress and rest LVEF values of 70%. 3. There is a reversible defect in the anteroapical segment indicating ischemia corresponding to the vascular territory of the distal half or distal third of the LAD. There is also marked hypokinesis in the same region at stress and this improves almost to a normal wall motion at rest. All other mcghee show normal perfusion and contract normally at stress and rest. There is normal myocardial thickening at stress and rest. 4. Faint calcifications are present in the LAD and in the left circumflex artery. There are no pulmonary nodules or enlarged lymph nodes. Dictated By: 07/07/18 1400 RAF CONDON MD. Signed By: 07/07/18 1417 RAF CONDON MD. [address] [facility] [place] [address] PH: DD: [phone] FAX: [phone] ~DIAGNOSTIC IMAGING REPORT~ Patient: ARABELLA BAKER SUZANNE : 1960 Sex: M Age: 58 Exam Name: CT CTA Chest Non-Coronary [facility] Exam Date: 07/06/18 Report # : [id number] CPT Code: 35958 EMR/MR #: [id number] Ordering: ANKIT FERNANDES Admiting: ALEX PATINO MD. Primary: Cristian Rand MD Attending: ALEX PATINO MD. Signed INDICATION: Shortness of breath TECHNIQUE: Multiple, contiguous 2.5 mm axial cuts of the chest are obtained following the administration of IV contrast. High resolution axial image as well as, sagittal and coronal reformatted images are available. COMPARISON: None FINDINGS: No pulmonary embolus is identified. The aorta is within normal limits, no aneurysm or dissection. The cardiomediastinal structures are normal. No adenopathy or effusions. The lungs are clear. The osseous structures are unremarkable. IMPRESSION: No evidence of pulmonary embolus. Dictated By: Xavier Cronin MD. Signed By: 07/06/18 1134 Xavier Cronin MD. [address] [facility] [place] [address] PH: DD: [phone] FAX: [phone] ~DIAGNOSTIC IMAGING REPORT~ Patient: ARABELLA BAKER : 1960 Sex: M Age: 58 Exam Name: XR CXR 1VW Exam Date: 07/06/18 Report # : [id number] CPT Code: 40459 EMR/MR #: [id number] Ordering: Joo Rivera Admiting: Primary: Cristian aRnd MD Attending: Signed EXAM: XR Chest, 1 View CLINICAL HISTORY: ITS.REASON cp/sob Physician Notes: Tech Comments: TECHNIQUE: Frontal view of the chest. COMPARISON: No relevant prior studies available. FINDINGS: Lungs: Unremarkable. The lungs are clear. Pleural space: Unremarkable. No pneumothorax. Heart: Unremarkable. No cardiomegaly. Mediastinum: Unremarkable. Bones/joints: Unremarkable. IMPRESSION: Normal chest x-ray. Dictated By: Lior Hogan MD Signed By: 07/06/18218 Lior Hogan MD Patient Problems - Patient Problem List (1) Unstable angina Current Visit: Yes Status: Acute Code(s): I20.0 - Unstable angina Category : Medical (2) Coronary artery disease Current Visit: Yes Status: Suspected Code(s): I25.10 - Atherosclerotic heart disease of cabazon coronary artery without angina pectoris Qualifiers: Coronary Disease-Associated Artery/Lesion type: [place] artery Andre[place] vs. transplanted heart: cab[place] heart Associated angina: with unstable angina Qualified Code(s): I25.110 - Atherosclerotic heart disease of [place] coronary artery with unstable angina pectoris Category: Medical (3) Chest pain Current Visit: Yes Status: Acute Code(s): R07.9 - Chest pain, unspecified Category: Medical (4) Prostate cancer Current Visit: Yes Status: Acute Code(s): C61 - Malignant neoplasm of prostate Category: Medical (5) Subclinical hypothyroidism Current Visit: Yes Status: Acute Code(s): E03.9 - Hypothyroidism, unspecified Category: Medical (6) Hypertension Current Visit: Yes Status: Acute Code(s): I10 - Essential (primary) hypertension Qualifiers: Hypertension type: essential hypertension Qualified Code(s): I10 - Essential (primary) hypertension Category: Medical (7) Hypercholesterolemia Current Visit: Yes Status: Acute Code(s): E78.00 - Pure hypercholesterolemia , unspecified Category: Medical
[2018-07-08 11:15] LABS: THYROPEROXIDASE AB 0.8 IU/mL (<9.0)
[2018-07-08 11:57] LABS: THYROGLOBULIN AB 3.2 IU/mL (<4.0)
[2018-07-09 13:49] LABS: Thyroid Stimulating Immunoglob <1.0 TSI index (<=1.3)
== END 2018-07-07 15:55 | disposition short-term general hospital (02) ==
LOC: ER 01:33 → MED/SURG 01:33
PROVIDERS: ADMIT Internal Medicine; ATTEND Internal Medicine